=== PATIENT | female | born 1950 | race Two or more races ===

== ENCOUNTER → 2017-02-06 | Outpatient (CLI) | payer MEDICARE, OTHER ==
--- NOTE | 2017-02-06 17:05 | RADRPT ---
PROCEDURE: Left knee radiographs. CLINICAL INDICATION: Left knee pain. TECHNIQUE: Four views. Weight bearing. Frontal, lateral, oblique, and patellar view. COMPARISON: No prior studies are available for comparison. FINDINGS: There is no fracture or dislocation. The soft tissues are normal. Articular surfaces are intact. There is no lytic or blastic lesion. There is no radiopaque foreign body. IMPRESSION: 1. Normal images of the left knee. RPTAT: QQ .Frankie Reeves MD, MD Date Time Electronically viewed and signed by .Frankie Reeves MD, MD on 02/06/2017 17:04 .R/
== END | disposition home or self-care (01) ==
LOC: HKI 14:15
PROVIDERS: ATTEND Orthopaedic Surgery
DX: M25.562 Pain in left knee (principal); S83.272A Complex tear of lateral meniscus, current injury, left knee, initial encounter; S83.502A Sprain of unspecified cruciate ligament of left knee, initial encounter
CPT/HCPCS: 73564; G0463